=== PATIENT | male | born 1955 | race Caucasian/White ===

== ENCOUNTER 2019-03-09 21:49 | Emergency (ER) | payer BC, OTHER ==
[2019-03-09 22:28] VITALS: BP 162/93
--- NOTE | 2019-03-09 22:37 | UC ---
Laceration HPI - HPI Summary HPI Summary: 63 y/o male presents to the urgent care c/o laceration of his RT thumb w/ a saw band about 1830PM tonight. Pt reports he was doing some work when he accidentally cut his thumb. Pt is UTD w/ Tetanus vaccine< 5 years ago. Pt states bleeding stopped w/ pressure. he irrigated his thumb and applied Neosporyn topical cream. Pt can move thumb w/o any difficulty. Pain is 3/10 at touch. Pt denies fever, numbness or tingling sensation around thumb or hand. SOB , chest pain, dizziness, chest pain, abdominal pain, N/V/d or visual changes. - History Of Current Complaint Chief Complaint: UCLaceration Stated Complaint: THUMB LAC Time Seen by Provider: 03/09/19 22:36 Hx Obtained From: Patient Laceration Location: Finger - right thumb laceration Mechanism Of Injury: Sharp Trauma - w/ a saw blade Onset/Duration: Sudden Onset, Lasting Hours - 3hrs Severity: Moderate Pain Intensity: 4 Pain Scale Used: 0-10 Numeric Aggravating Factors: Movement, Other: - touch Related History: Dominant Hand Right - Allergies/Home Medications Allergies/Adverse Reactions: Allergies Allergy/AdvReac Type Severity Reaction Status Date / Time tetanus toxoid, adsorbed Allergy Hives Verified 03/09/19 22:28 Home Medications: Home Medications Allopurinol TAB* [Zyloprim 100 MG TAB*] 200 mg PO DAILY 03/09/19 [History Confirmed 03/09/19] Ibuprofen TAB* [Advil TAB*] 800 mg PO ONCE PRN 03/09/19 [History Confirmed 03/09] PMH/Surg Hx/FS Hx/Imm Hx Previously Healthy: Yes Other Endocrine History: gout GI/ History: Gastroesophageal Reflux - Surgical History Surgical History: Yes Surgery Procedure, Year, and Place: LEFT HIP REPLACEMENT 2018, RIGHT ACL RECONSTRUCTION/FX PATELLAR REPAIRED, LEFT FIBULAR ORIF - Family History Known Family History: Positive: Hypertension - Social History Occupation: Employed Full-time Lives: With Family Alcohol Use: Occasionally Substance Use Type: None Smoking Status (MU): Never Smoked Tobacco - Immunization History Most Recent Tetanus Shot: <5 YEARS Hx Tetanus, Diphtheria Vaccination: Yes Review of Systems All Other Systems Reviewed And Are Negative: Yes Constitutional: Positive: Negative Skin: Positive: Other - laceration of the Right thumb w/ saw band abut 3hrs Eyes: Positive: Negative ENT: Positive: Negative Respiratory: Positive: Negative Cardiovascular: Positive: Negative Gastrointestinal: Positive: Negative Genitourinary: Positive: Negative Motor: Positive: Negative Neurovascular: Positive: Negative Musculoskeletal: Positive: Other: - right thumb pain s/p laceration Neurological: Positive: Negative Psychological: Positive: Negative Is Patient Immunocompromised?: No Physical Exam - Summary Physical Exam Summary: Vital Signs Reviewed: Yes General: well developed, well nourished female sitting in the examining table w/ o any apparent distress Eye Exam: Normal Eyes: Positive: Conjunctiva Clear - PERRLA, EOMI, fundi grossly normal ENT: Positive: Normal ENT inspection, Hearing grossly normal, Pharynx normal, TMs normal Neck: Positive: Supple, Nontender, No Lymphadenopathy Respiratory: Positive: Chest non-tender, Lungs clear, Normal breath sounds, No respiratory distress Cardiovascular: Positive: RRR, No Murmur, Pulses Normal, Brisk Capillary Refill Abdomen Description: Positive: Nontender, No Organomegaly, Soft. Negative: CVA Tenderness (R), CVA Tenderness (L) Bowel Sounds: Positive: Present Musculoskeletal: Positive: Strength Intact, ROM Intact, No Edema Neurological: Positive: Alert, Muscle Tone Normal Psychological Exam: Normal Skin:Positive:ventral side of Rt thumb with a linear superficial laceration about 2.0cm in size, non bleeding, no foreign body observed. mild tenderness to palpation. FROM of RT Thumb, sensation intact, capillary refill brisk, and pulses WNL. Triage Information Reviewed: Yes Vital Signs: Initial Vital Signs Temp 99 F 03/09/19 22:24 Pulse 59 03/09/19 22:24 Resp 16 03/09/19 22:24 BP 162/93 03/09/19 22:24 Pulse Ox 98 03/09/19 22:24 Laceration Repair - Laceration Repair 1 Description: Linear Laceration Size After Repair: Length (cm) - 2.0cm Modified For Repair: No Anesthesia Used: 1.0% Lido - Digital block at the base of Rt thumb w/ 2 ml of lidocaine Cleansing Completed Via Routine Prep: Yes Irrigation With Pressure Irrigation Device: Yes Closure Material: Sutures - 7 Closure Method: Single Layer Suture Of: Skin, SQ Suture Type: Nylon - 5.0 Laceration Course/Dx - Course/Dx Course Of Treatment: 63 y/o male presents to the urgent care c/o laceration of his RT thumb w/ a saw band about 1830PM tonight. Pt reports he was doing some work when he accidentally cut his thumb. Pt is UTD w/ Tetanus vaccine< 5 years ago. Pt states bleeding stopped w/ pressure. he irrigated his thumb and applied Neosporyn topical cream. Pt can move thumb w/o any difficulty. Pain is 3/10 at touch. Pt denies fever, numbness or tingling sensation around thumb or hand. SOB , chest pain, dizziness, chest pain, abdominal pain, N/V/d or visual changes. Hx obtained. Pt w/ ventral side of Rt thumb with a linear superficial laceration about 2.0cm in size, non bleeding, no foreign body observed. mild tenderness to palpation on examination. LACERATION PROCEDURE NOTE: . Copious irrigation was done with saline by the nurse and the wound explored. There was no FB or deep structure injury noted. FROM of Rt thumb. procedure was explained and consent obtained, Timeout performed. The wound was anesthetized with 2 mL of 1% lido by digital block at the base of Rt thumb with good anesthesia. Pt tolerated ell procedure and neurovascular intact. Sterile drape and prep were done. There were 7 sutures with 5.0 nylon type of suture. The length of the wound after closure was 2.0cm. No debridement done. Pt tolerated the procedure well without adverse effects. Neurovascular intact and FROM. Pt advised to f/u suture removal in 12-14 days and if any signs of infection develop to immediately return to the urgent care of PCP for further management and treatment. Pt understood and agreed and left the clinic ambulating A&Ox3. - Differential Dx - Laceration/Wound Differental Diagnoses: Abrasion, Cellulitis, Laceration, Puncture Wound, Tendon Laceration - Diagnosis Provider Diagnosis: Laceration of right thumb, Elevated BP without diagnosis of hypertension Discharge - Sign-Out/Discharge Documenting (check all that apply): Patient Departure - d/c home All imaging exams completed and their final reports reviewed: No Studies - Discharge Plan Condition: Stable Disposition: HOME Patient Education Materials: Care For Your Stitches (ED), Laceration (ED), Low- Sodium Diet (ED) Referrals: Marcos Salcedo MD [Primary Care Provider] - 2 Weeks Additional Instructions: 1-Please apply Triple antibiotic topical over the wound. Keep wound clean and dry 2- F/u suture removal in 12-14 days w/ your PCP or here at the urgent care. 3-Take Ibuprofen or Tylenol PO q6-8hrs prn for pain or swelling. 4- If you develop fever or redness around your finger despite the antibiotic please go to the ER immediately or return to the Urgent care. 5-Your BP is elevated today. Please take your BP medications and decrease salt in your diet, monitor BP and if it continues to be elevated please f/u with your PCP for further management. If you develop chest pain, dizziness, visual disturbances, SOB, or severe METZ please go immediately to the ER for further management - Billing Disposition and Condition Condition: STABLE Disposition: Home
[2019-03-09] MEDS ORDERED: Lidocaine 1%* 5 ML VIAL INJ ONE (22:43)
== END 2019-03-09 23:25 | disposition home or self-care (01) ==
LOC: UCEAST 21:49
DX: S61.011A Laceration without foreign body of right thumb without damage to nail, initial encounter (principal); W31.2XXA Contact with powered woodworking and forming machines, initial encounter; Y92.9 Unspecified place or not applicable; R03.0 Elevated blood-pressure reading, without diagnosis of hypertension; M10.9 Gout, unspecified; K21.9 Gastro-esophageal reflux disease without esophagitis; Z88.7 Allergy status to serum and vaccine; Z82.49 Family history of ischemic heart disease and other diseases of the circulatory system
CPT/HCPCS: 12001; 99212; G0463